=== PATIENT | female | born 1940 | race Caucasian/White ===

== ENCOUNTER 2018-02-04 05:23 | Day surgery (SDC) | payer MEDICARE, OTHER ==
[2018-02-04] MEDS: Dextrose 5%-0.45% NaCl 1,000 ML IV SCH (06:05)
[2018-02-04] MEDS ORDERED: fentaNYL 100 MCG/2 ML SDV ONE (06:18)
[2018-02-04] MEDS ORDERED: Midazolam 1 MG/ML 2 ML SDV ONE (06:18)
[2018-02-04] MEDS: fentaNYL 100 MCG/2 ML SDV IV ONE ×2 (06:31→06:32)
[2018-02-04] MEDS: Midazolam 1 MG/ML 2 ML SDV IV ONE ×2 (06:33)
--- NOTE | 2018-02-04 08:29 | OR ---
DATE: 02/04/2018 PROCEDURES PERFORMED: Esophagogastroduodenoscopy and multiple pinch biopsies. INSTRUMENT USED: GIF-H180 Olympus video panendoscope. PREMEDICATIONS: No oral topical anesthesia used. Fentanyl 100 mcg intravenous and Versed 2 mg intravenous. Nasal O2 cannula. The procedure was done under pulse oximetry, BP recording, and cardiac rehabilitation specialist. INDICATION: The patient with longstanding heartburn, on PPI with recent CT suggestive of gastric antral mass. Esophagogastroduodenoscopy is performed for detection of any active erosive lesions, Melendez esophagus and/or malignancy also under consideration, H. pylori status to be determined, endoscopic hemostasis therapy if needed. DESCRIPTION OF PROCEDURE: The scope was passed with ease. Adequate visualization of the esophagus was made from proximal to distal areas. No upper esophageal lesions identified. No distal esophageal stricture. No uphill or downhill esophageal varices. No Dorota-Garcia tear. No evidence of erosive esophagitis by [place] criteria. No esophageal polyp or tumor mass identified. Z-line was seen at around 39 cm distal to the oral verge, configuration consistent with grade 1 by ZAP classification. No proximal gastric varices noted. Gastric fundus examination by retroflexion showed no polypoid lesions. No gastric ulcer, malignant mass, or vascular ectasia identified. Duodenal bulb showed no ulcer. Visualized second part of the duodenum was unremarkable. Multiple pinch biopsies were taken from the gastric antrum and proximal body and sent for PyloriTek test for H. pylori, and if negative in an hour, the tissue was to be sent for histopathology. No bleeding was noted from any of the visualized areas at the completion of examination. Photographs were taken of the duodenal bulb, gastric antrum and fundus, and distal esophagus. IMPRESSION: Normal study. The patient tolerated the procedure well. [facility] /[id number]
[2018-02-04 08:47] VITALS: BP 101/45
== END 2018-02-04 08:40 | disposition home or self-care (01) ==
LOC: DL.ENDO 05:23
PROVIDERS: ATTEND Internal Medicine Gastroenterology
DX: R93.5 Abnormal findings on diagnostic imaging of other abdominal regions, including retroperitoneum (principal); K29.50 Unspecified chronic gastritis without bleeding; R12 Heartburn; I10 Essential (primary) hypertension; E03.9 Hypothyroidism, unspecified; Z79.82 Long term (current) use of aspirin; Z79.899 Other long term (current) drug therapy; E78.5 Hyperlipidemia, unspecified; Z88.8 Allergy status to other drugs, medicaments and biological substances; Z88.5 Allergy status to narcotic agent; Z88.1 Allergy status to other antibiotic agents; Z88.2 Allergy status to sulfonamides
CPT/HCPCS: 43239; 87077; J7042; J2250; J3010

== ENCOUNTER 2018-02-07 06:19 | Day surgery (SDC) | payer MEDICARE, OTHER ==
[~2018-02-07 06:19] MED LIST: Midazolam 1 MG/ML 2 ML SDV ONE; fentaNYL 100 MCG/2 ML SDV ONE
[2018-02-07] MEDS ORDERED: Midazolam 1 MG/ML 2 ML SDV IV ONE (06:20)
[2018-02-07] MEDS ORDERED: fentaNYL 100 MCG/2 ML SDV IV ONE (06:20)
[2018-02-07] MEDS: Dextrose 5%-0.45% NaCl 1,000 ML IV SCH (07:00)
[2018-02-07] MEDS: fentaNYL 100 MCG/2 ML SDV IV ONE ×2 (07:48)
[2018-02-07] MEDS: Midazolam 1 MG/ML 2 ML SDV IV ONE ×4 (07:49→07:56)
[2018-02-07 12:33] VITALS: BP 80/58
--- NOTE | 2018-02-07 14:59 | OR ---
DATE: 02/07/2018 PROCEDURE: Total colonoscopy. INSTRUMENT USED: PCF-H180 [place] Olympus video colonoscope. PREMEDICATIONS: Fentanyl 100 mcg intravenous and versed 3 mg intravenous. Nasal O2 cannula. The procedure was done under pulse oximetry, BP recording, and monitoring tech. INDICATION: The patient with progressive constipation. Colonoscopy examination is done for detection of any polypoid lesions and removal, endoscopic hemostasis therapy if needed. DESCRIPTION OF PROCEDURE: Initial rectal exam was unremarkable. Rigid anoscopy was normal. The colonoscope was passed with ease. Numerous scattered diverticula were noted in the distal left colon along with deformity. The scope was passed with ease up to the ileocecal area, photographs were taken of the normal-appearing cecum identified by landmarks of appendiceal orifice and double- bulged ileocecal folds. No bleeding was noted from any of the visualized areas at the commencement of the examination. Operation was the adequate stricture. No vascular ectasia. No large isolated ulcerations seen. No evidence of diffuse inflammatory bowel disease in the form of friability, contact bleeding, or ulcerations. No polyp or tumor mass identified. Probing the proximal sides of folds and flexures, using adequate distention and clearing up the stool material. Withdrawal of the scope was made, cecum to rectum time over 6 minutes. No bleeding was noted from any of the visualized areas at the completion of examination. IMPRESSION: Diverticulosis. The patient tolerated the procedure well. [facility] /[id number]
== END 2018-02-07 10:05 | disposition home or self-care (01) ==
LOC: DL.ENDO 06:19
PROVIDERS: ATTEND Internal Medicine Gastroenterology
DX: K59.00 Constipation, unspecified (principal); K57.30 Diverticulosis of large intestine without perforation or abscess without bleeding; M81.0 Age-related osteoporosis without current pathological fracture; I10 Essential (primary) hypertension; E03.9 Hypothyroidism, unspecified; E78.5 Hyperlipidemia, unspecified; Z88.1 Allergy status to other antibiotic agents; Z88.2 Allergy status to sulfonamides; Z88.5 Allergy status to narcotic agent; Z88.8 Allergy status to other drugs, medicaments and biological substances
CPT/HCPCS: 45378; J2250; J3010; J7042

== ENCOUNTER 2019-04-26 16:22 | Emergency (ER) | payer MEDICARE, OTHER ==
[2019-04-26 16:54] VITALS: BP 129/61; PULSE 154
[2019-04-26 17:48] LABS: ANION GAP 16.7
[2019-04-26] MEDS ORDERED: Magnesium Citrate Solution 296 ML Bottle PO ONE (17:53)
--- NOTE | 2019-04-26 18:39 | EDM.PDOC ---
Scribed by Kori Finney 04/26/19 [id number] for Allison Watkins NP ED HPI GENERAL MEDICAL PROBLEM - General Chief Complaint: Gastrointestinal Problem Stated Complaint: CONSTIPATED Time Seen by Provider: 04/26/19 17:04 Source of Information: Reports: Patient, RN, RN Notes Reviewed History Limitations: Reports: No Limitations - History of Present Illness INITIAL COMMENTS - FREE TEXT/NARRATIVE: A 78-year-old female w presents with no bowel movements since Sunday. She is receiving chemotherapy for left breast cancer. Sunday was her first dose. She took 3 doses of Miralax yesterday. No abdominal pain to palpation. Abdomen is distended. Onset: Gradual Duration: Getting Worse Location: Reports: Abdomen Quality: Reports: Ache Severity: Moderate Improves with: Reports: None Worsens with: Reports: None Associated Symptoms: Reports: No Other Symptoms Abdominal Pain Score (Numeric/FACES): 5 - Related Data Allergies Allergy/AdvReac Type Severity Reaction Status Date / Time amoxicillin trihydrate Allergy Hives Verified 02/07/18 06:42 [From Augmentin] diphenhydramine Allergy Swelling Verified 02/07/18 06:42 levofloxacin [From Levaquin] Allergy Hives Verified 02/07/18 06:42 nitrofurantoin Allergy Hives Verified 02/07/18 06:42 [From Macrobid] potassium clavulanate Allergy Hives Verified 02/07/18 06:42 [From Augmentin] CODEINE Allergy Nausea and Uncoded 02/07/18 06:42 Vomiting Home Meds: Home Meds Aspirin [Halfprin] 81 mg PO DAILY 05/16/14 [History] Levothyroxine Sodium 88 mcg PO DAILY 05/16/14 [History] Lisinopril [Prinivil] 20 mg PO DAILY 05/16/14 [History] Omeprazole 20 mg PO DAILY 05/16/14 [History] Ca Carbonate/Vitamin D3/Vit K [Calcium + D Soft Chewable Tab] 1 tab PO DAILY 01/19 [History] atorvaSTATin [Lipitor] 10 mg PO BEDTIME 08/24/15 [History] Fluocinonide 1 applic TOP ASDIRECTED 02/01/18 [History] Ketoconazole 1 applic TOP .QOD 02/01/18 [History] Past Medical History HEENT History: Reports: Impaired Vision, Other (See Below) Other HEENT History: WEARS CORRECTIVE LENS. UPPER DENTURE PLATE Cardiovascular History: Reports: High Cholesterol, Hypertension Respiratory History: Reports: None Gastrointestinal History: Reports: Diverticulosis, GERD Genitourinary History: Reports: Renal Calculus, UTI, Recurrent, Other (See Below ) Other Genitourinary History: NEPHROLITHIASIS LEAD INSPECTOR History: Reports: , Other (See Below) Other LEAD INSPECTOR History: POST-MENOPAUSAL Musculoskeletal History: Reports: Back Pain, Chronic Neurological History: Reports: None Psychiatric History: Reports: None Endocrine/Metabolic History: Reports: Hypothyroidism, Obesity/BMI 30+, Osteopenia Hematologic History: Reports: None Immunologic History: Reports: None Oncologic (Cancer) History: Reports: Breast Dermatologic History: Reports: None - Infectious Disease History Infectious Disease History: Reports: Chicken Pox, Measles, Mumps - Past Surgical History HEENT Surgical History: Reports: Adenoidectomy, Cataract Surgery, Oral Surgery, Tonsillectomy Social & Family History - Family History Family Medical History: Noncontributory - Caffeine Use Caffeine Use: Reports: Coffee, Tea Other Caffeine Use: FEW CUPS OF COFFEE DAILY ED ROS GENERAL - Review of Systems Review Of Systems: ROS reveals no pertinent complaints other than HPI. ED EXAM, GI/ABD - Physical Exam Exam: See Below Exam Limited By: No Limitations General Appearance: Alert, WD/WN, No Apparent Distress Eyes: Bilateral: Normal Appearance Ears: Normal External Exam, Normal Canal, Hearing Grossly Normal, Normal TMs Nose: Normal Inspection, Normal Mucosa, No Blood Throat/Mouth: Normal Inspection, Normal Lips, Normal Teeth, Normal Gums, Normal Oropharynx, Normal Voice, No Airway Compromise Head: Atraumatic, Normocephalic Neck: Normal Inspection, Supple, Non-Tender, Full Range of Motion Respiratory/Chest: No Respiratory Distress, Lungs Clear, Normal Breath Sounds, No Accessory Muscle Use, Chest Non-Tender Cardiovascular: Normal Peripheral Pulses, Regular Rate, Rhythm, No Edema, No Gallop, No JVD, No Murmur, No Rub GI/Abdominal Exam: Other (No pain with palpation. Positive bowel sounds. Tympany upper lower to dull percussion. No rectal impaction on rectal exam; neg hem) (Female) Exam: Deferred Rectal (Female) Exam: Deferred Back Exam: Normal Inspection Extremities: Normal Inspection, Normal Range of Motion, Non-Tender, Normal Capillary Refill, No Pedal Edema Neurological: Alert, Oriented, CN II-XII Intact, Normal Cognition, Normal Gait, Normal Reflexes, No Motor/Sensory Deficits Psychiatric: Normal Affect, Normal Mood Skin Exam: Warm, Dry, Intact, Normal Color, No Rash Course - Vital Signs Last Recorded V/S: Last Vital Signs Temp 36.3 C 04/26/19 16:52 Pulse 154 H 04/26/19 16:52 Resp 18 04/26/19 16:52 BP 129/61 04/26/19 16:52 Pulse Ox 95 04/26/19 16:52 - Orders/Labs/Meds Orders: Active Orders 24 hr Category Date Time Status Enema [RC] ASDIRECTED Care 04/26/19 17:50 Active Abdomen 2V AP Flat Upright [CR] Urgent Exams 04/26/19 17:15 Taken Labs: Laboratory Tests 04/26/19 04/26/19 Range/Units 17:24 17:24 WBC 18.0 H (5.0-10.0) 10^3/uL RBC 4.39 (4.2-5.4) 10^6/uL Hgb 12.9 (12.0-16.0) g/dL Hct 38.3 (37.0-47.0) % MCV 87.2 (80-100) fL MCH 29.4 (27.0-34.0) pg MCHC 33.7 (33.0-35.0) g/dL Plt Count 254 (150-450) 10^3/uL Neut % (Auto) 99.2 H (42.2-75.2) % Lymph % (Auto) 0.5 L (20.5-50.1) % [place] % (Auto) 0.1 L (2-8) % Eos % (Auto) 0.0 L (1.0-3.0) % Baso % (Auto) 0.2 (0.0-1.0) % Add Manual Diff Yes Neutrophils % (Manual) 90 H (42-75) % Band Neutrophils % 6 % Lymphocytes % (Manual) 2 L (20-50) % Monocytes % (Manual) 1 L (2-8) % Metamyelocytes % 1 Sodium 134 L (135-145) mmol/L Potassium 3.7 (3.6-5.0) mmol/L Chloride 101 (101-111) mmol/L Carbon Dioxide 20.0 L (21.0-31.0) mmol/L Anion Gap 16.7 BUN 30 H (7-18) mg/dL Creatinine 1.3 (0.6-1.3) mg/dL Est Cr Clr Drug Dosing 29.12 mL/min Estimated GFR (MDRD) 40 BUN/Creatinine Ratio 23.07 Glucose 189 H (74-105) mg/dL Calcium 9.7 (8.4-10.2) mg/dl Total Bilirubin 0.8 (0.2-1.0) mg/dL AST 28 (10-42) IU/L ALT 19 (10-60) IU/L Alkaline Phosphatase 150 H (42-121) IU/L Total Protein 7.3 (6.7-8.2) g/dl Albumin 4.1 (3.2-5.5) g/dl Globulin 3.2 Albumin/Globulin Ratio 1.28 Meds: Medications Discontinued Medications Generic Name Dose Route Start Last Admin Trade Name Freq PRN Reason Stop Dose Admin Magnesium Citrate 296 ml 04/26/19 17:53 04/26/19 18:04 Citrate Of Magnesia PO 04/26/19 17:54 296 ml ONETIME ONE Administration - Radiology Interpretation Free Text/Narrative:: Moderate fecal retention on Flat / upright film. Departure - Departure Time of Disposition: 18:37 Disposition: Home, Self-Care 01 Condition: Good Clinical Impression: Constipation - Discharge Information *PRESCRIPTION DRUG MONITORING PROGRAM REVIEWED*: Not Applicable *COPY OF PRESCRIPTION DRUG MONITORING REPORT IN PATIENT MAX: Not Applicable Instructions: Constipation, Adult Forms: ED Department Discharge Additional Instructions: Use 2 capfuls of mirlax tonight and twice a day. Tomorrow take one more bottle of mag citrate; get [facility] at [facility]. Use ducolox supp twice a day for next 3 days. See you primary care next week. return if worsening symptoms - My Orders Last 24 Hours: My Active Orders 04/26/19 17:15 Abdomen 2V AP Flat Upright [CR] Urgent 04/26/19 17:50 Enema [RC] ASDIRECTED - Assessment/Plan Last 24 Hours: My Active Orders 04/26/19 17:15 Abdomen 2V AP Flat Upright [CR] Urgent 04/26/19 17:50 Enema [RC] ASDIRECTED I have read and agree with the documentation that has been completed regarding this visit. By signing this record, I attest that the documentation was completed in my physical presence and is an accurate record of the encounter.
== END 2019-04-26 18:53 | disposition home or self-care (01) ==
LOC: DL.ED 16:22
DX: K59.00 Constipation, unspecified (principal); C50.919 Malignant neoplasm of unspecified site of unspecified female breast; I10 Essential (primary) hypertension; E78.00 Pure hypercholesterolemia, unspecified; K21.9 Gastro-esophageal reflux disease without esophagitis; E03.9 Hypothyroidism, unspecified; Z88.1 Allergy status to other antibiotic agents; Z88.8 Allergy status to other drugs, medicaments and biological substances; Z88.5 Allergy status to narcotic agent; Z79.82 Long term (current) use of aspirin; Z79.899 Other long term (current) drug therapy
CPT/HCPCS: 36415; 74019; 80053; 85025; 99283; A9270

== ENCOUNTER 2019-04-27 18:56 | Emergency (ER) | payer MEDICARE, OTHER ==
[2019-04-27] MEDS ORDERED: EPINEPHrine 1:10,000 1 MG/10 ML Syringe IV ONE (18:57)
--- NOTE | 2019-04-27 19:31 | EDM.PDOC ---
ED HPI GENERAL MEDICAL PROBLEM - General Chief Complaint: CPR in Progress Time Seen by Provider: 04/27/19 19:26 Source of Information: Reports: EMS, Family History Limitations: Reports: Other (cpr) - History of Present Illness INITIAL COMMENTS - FREE TEXT/NARRATIVE: EMS state was told down without CPR ~ 10 minuted. arrived at scene of full arrest and CPR ~ 20 minutes from beginning to arrival @ ER. pt remain in asystole, without spont respiration. fixed dilated pupils. spouse states pt was sitting on toilet and wasn't feeling well past week had chemo last week. was here yesterday and Tx with Rx. states pt suddenly went out and unable to get her to respond. called EMS. pt arrived full arrest with asysole, ET in place, fixed dilated pupils. CPR continued and d/c upon no resumption of spontaneous activity. - Related Data Allergies Allergy/AdvReac Type Severity Reaction Status Date / Time amoxicillin trihydrate Allergy Hives Verified 02/07/18 06:42 [From Augmentin] diphenhydramine Allergy Swelling Verified 02/07/18 06:42 levofloxacin [From Levaquin] Allergy Hives Verified 02/07/18 06:42 nitrofurantoin Allergy Hives Verified 02/07/18 06:42 [From Macrobid] potassium clavulanate Allergy Hives Verified 02/07/18 06:42 [From Augmentin] CODEINE Allergy Nausea and Uncoded 02/07/18 06:42 Vomiting Home Meds: Home Meds Aspirin [Halfprin] 81 mg PO DAILY 05/16/14 [History] Levothyroxine Sodium 88 mcg PO DAILY 05/16/14 [History] Lisinopril [Prinivil] 20 mg PO DAILY 05/16/14 [History] Omeprazole 20 mg PO DAILY 05/16/14 [History] Ca Carbonate/Vitamin D3/Vit K [Calcium + D Soft Chewable Tab] 1 tab PO DAILY 01/19 [History] atorvaSTATin [Lipitor] 10 mg PO BEDTIME 08/24/15 [History] Fluocinonide 1 applic TOP ASDIRECTED 02/01/18 [History] Ketoconazole 1 applic TOP .QOD 02/01/18 [History] Past Medical History HEENT History: Reports: Impaired Vision, Other (See Below) Other HEENT History: WEARS CORRECTIVE LENS. UPPER DENTURE PLATE Cardiovascular History: Reports: High Cholesterol, Hypertension Respiratory History: Reports: None Gastrointestinal History: Reports: Diverticulosis, GERD Genitourinary History: Reports: Renal Calculus, UTI, Recurrent, Other (See Below ) Other Genitourinary History: NEPHROLITHIASIS DEAN OF GRADUATE STUDIES History: Reports: , Other (See Below) Other DEAN OF GRADUATE STUDIES History: POST-MENOPAUSAL Musculoskeletal History: Reports: Back Pain, Chronic Neurological History: Reports: None Psychiatric History: Reports: None Endocrine/Metabolic History: Reports: Hypothyroidism, Obesity/BMI 30+, Osteopenia Hematologic History: Reports: None Immunologic History: Reports: None Oncologic (Cancer) History: Reports: Breast Dermatologic History: Reports: None - Infectious Disease History Infectious Disease History: Reports: Chicken Pox, Measles, Mumps - Past Surgical History HEENT Surgical History: Reports: Adenoidectomy, Cataract Surgery, Oral Surgery, Tonsillectomy Social & Family History - Family History Family Medical History: Noncontributory - Caffeine Use Caffeine Use: Reports: Coffee, Tea Other Caffeine Use: FEW CUPS OF COFFEE DAILY ED ROS GENERAL - Review of Systems Review Of Systems: ROS reveals no pertinent complaints other than HPI. ED EXAM, CPR - Physical Exam Exam: See Below Limited By: No Limitations General Appearance: Other (CPR) Eye Exam: Bilateral Eye: PERRL (fixed dilated @ 8mm) Throat/Mouth: Other (copious vomitus suctioned) Head: Atraumatic Respiratory Chest: Other (CPR) Cardiovascular: Absent Heart Sounds, CPR In Progress 0: Right Carotid, Left Carotid, Femoral (R), Femoral (L) Neurological: Other (CPR) Departure - Departure Time of Disposition: 19:33 Disposition: 20 Clinical Impression: Cardiac arrest - Discharge Information
[2019-04-27 19:55] LABS: SODIUM,NA 134 mmol/L (135-145)
[2019-04-27 19:56] LABS: ANION GAP 22.9; CHLORIDE,CL 101 mmol/L (101-111)
[2019-04-27] MEDS ORDERED: EPINEPHrine 1:10,000 1 MG/10 ML Syringe ONE (21:00)
== END 2019-04-27 20:33 | disposition expired ==
LOC: DL.ED 18:56
DX: I46.9 Cardiac arrest, cause unspecified (principal); I10 Essential (primary) hypertension; E78.00 Pure hypercholesterolemia, unspecified; K21.9 Gastro-esophageal reflux disease without esophagitis; E03.9 Hypothyroidism, unspecified; E66.9 Obesity, unspecified; Z88.1 Allergy status to other antibiotic agents; Z88.8 Allergy status to other drugs, medicaments and biological substances; Z88.5 Allergy status to narcotic agent; Z79.82 Long term (current) use of aspirin; Z79.899 Other long term (current) drug therapy
CPT/HCPCS: 36415; 80053; 84484; 85025; 92950; 96374; 99291; J0171